=== PATIENT | female | born 1975 | race Asian ===

== ENCOUNTER 2024-03-08 16:13 | Emergency (ER) | payer OTHER ==
[~2024-03-08] VITALS: Ht 154.9 cm; Wt 61.2 kg
[~2024-03-08 16:13] MED LIST: [UNRECOGNIZED DRUG - OTHER]
[2024-03-08 16:42] VITALS: BP 103/58; PULSE 115; RESP 16; TEMP 98.3; O2SAT 99
[2024-03-08 17:04] LABS: HEMATOCRIT. 40.7 % (36.0-48.0); HEMOGLOBIN. 13.6 g/dL (12.0-16.0); MEAN CORPUSCULAR HEMOGLOBIN 30.7 pg (28.0-32.0); MEAN CORPUSCULAR HGB CONC 33.3 g/dL (31.0-37.0); MEAN CORPUSCULAR VOLUME 92.2 fL (81.0-99.0); MEAN PLATELET VOLUME 7.6 fl (7.4-10.4); PLATELET 322 x1000/uL (130-400); RED BLOOD CELL COUNT 4.42 mill/uL (4.2-5.4); RED CELL DISTRIBUTION WIDTH 15.1 % (11.6-14.6); WHITE BLOOD COUNT 8.2 x1000/uL (4.5-11.0)
[2024-03-08 17:07] LABS: DIFFERENTIAL COMMENT 1
[2024-03-08 17:12] LABS: CHLORIDE 106 mEq/L (98-107); POTASSIUM 3.8 mEq/L (3.5-5.1); SODIUM 137 mEq/L (136-145)
[2024-03-08 17:13] LABS: CALCIUM 8.7 mg/dL (8.7-10.4); CARBON DIOXIDE 24 mEq/L (21-32)
[2024-03-08 17:17] LABS: HCG SCREEN NEGATIVE
[2024-03-08 17:18] LABS: CREATININE 0.8 mg/dL (0.6-1.0); GLUCOSE 119 mg/dL (70-105); UREA NITROGEN BLOOD 7 mg/dL (9-23)
[2024-03-08 17:20] LABS: ALANINE AMINOTRANSFERASE 29 IU/L (10-49); ALBUMIN 4.2 g/dL (3.2-4.8); ASPARTATE AMINOTRANSFERASE 23 IU/L (<34); TROPONIN I HIGH SENSITIVITY < 4 ng/L (3.0-34)
[2024-03-08 17:21] LABS: BILIRUBIN TOTAL 0.3 mg/dL (0.1-1.0); PROTEIN TOTAL 6.6 g/dL (6.0-8.3)
[2024-03-08 17:22] LABS: BILIRUBIN DIRECT < 0.1 mg/dL (<=3.0)
[2024-03-08 18:13] LABS: ANISOCYTOSIS 1+; PLATELET ESTIMATE NORMAL
== END 2024-03-08 20:35 | disposition home or self-care (01) ==
LOC: ER 16:13
DX: J06.9 Acute upper respiratory infection, unspecified (principal)
CPT/HCPCS: 36415; 71045; 80048; 80076; 84484; 84703; 85025; 93005; 99285